=== PATIENT | female | born 1960 | race Caucasian/White ===

== ENCOUNTER 2025-01-16 09:44 | Emergency (ER) | payer MEDICAID ==
[2025-01-16] MEDS: Acetaminophen/HYDROcodone 325-5 MG Tab PO ONE (11:06)
== END 2025-01-16 11:20 | disposition home or self-care (01) ==
LOC: VM.ED 09:44
DX: S43.401A Unspecified sprain of right shoulder joint, initial encounter (principal); X58.XXXA Exposure to other specified factors, initial encounter
CPT/HCPCS: 73030-RT; 99283; A9270-GY

== ENCOUNTER 2025-02-05 15:52 | Emergency (ER) | payer MEDICAID | END 2025-02-05 16:34 | disposition home or self-care (01) | LOC: VM.ED 15:52 | DX: S01.01XA Laceration without foreign body of scalp, initial encounter (principal); I10 Essential (primary) hypertension; Z79.899 Other long term (current) drug therapy; W19.XXXA Unspecified fall, initial encounter; Y92.019 Unspecified place in single-family (private) house as the place of occurrence of the external cause | CPT/HCPCS: 12001; 99282; 99283 ==